=== PATIENT | female | born 1990 | race Caucasian/White ===

== ENCOUNTER 2023-10-19 19:05 | Outpatient (RCR) | payer BC, SELFPAY | END 2023-10-19 23:59 | disposition home or self-care (01) | LOC: RPT 19:05 | PROVIDERS: ATTENDING PHYSICIAN Nurse Practitioner Adult Health | DX: G89.29 Other chronic pain (principal); M54.50 Low back pain, unspecified; Z73.6 Limitation of activities due to disability | CPT/HCPCS: 97110; 97112; 97140; 97164; 97530 ==

== ENCOUNTER → 2023-11-30 15:10 | Outpatient (REF) | payer BC, SELFPAY | LOC: RAD 15:10 | PROVIDERS: ATTENDING PHYSICIAN Family Medicine | DX: M53.3 Sacrococcygeal disorders, not elsewhere classified (principal) | CPT/HCPCS: 72220 ==

== ENCOUNTER 2023-11-30 19:17 | Outpatient (RCR) | payer BC, SELFPAY | END 2023-11-30 23:59 | disposition home or self-care (01) | LOC: RPT 19:17 | PROVIDERS: ATTENDING PHYSICIAN Nurse Practitioner Adult Health | DX: G89.29 Other chronic pain (principal); M54.50 Low back pain, unspecified; Z73.6 Limitation of activities due to disability | CPT/HCPCS: 97110; 97112; 97140 ==

== ENCOUNTER 2023-12-28 17:28 | Outpatient (RCR) | payer BC, SELFPAY | END 2023-12-28 23:59 | disposition home or self-care (01) | LOC: RPT 17:28 | PROVIDERS: ATTENDING PHYSICIAN Nurse Practitioner Adult Health | DX: G89.29 Other chronic pain (principal); M54.50 Low back pain, unspecified; Z73.6 Limitation of activities due to disability | CPT/HCPCS: 97110; 97112; 97140 ==

== ENCOUNTER 2024-01-18 17:37 | Outpatient (RCR) | payer BC, SELFPAY | END 2024-01-18 23:59 | disposition home or self-care (01) | LOC: RPT 17:37 | PROVIDERS: ATTENDING PHYSICIAN Nurse Practitioner Adult Health | DX: G89.29 Other chronic pain (principal); M54.50 Low back pain, unspecified; Z73.6 Limitation of activities due to disability | CPT/HCPCS: 97112; 97140; 97530 ==

== ENCOUNTER 2024-02-08 18:11 | Outpatient (RCR) | payer BC, SELFPAY | END 2024-02-08 23:59 | disposition home or self-care (01) | LOC: RPT 18:11 | PROVIDERS: ATTENDING PHYSICIAN Nurse Practitioner Adult Health | DX: G89.29 Other chronic pain (principal); M62.9 Disorder of muscle, unspecified; M54.50 Low back pain, unspecified; Z73.6 Limitation of activities due to disability; N39.3 Stress incontinence (female) (male) | CPT/HCPCS: 97112; 97140; 97530 ==

== ENCOUNTER → 2025-02-21 16:00 | Outpatient (REF) | payer BC, SELFPAY | LOC: RAD 16:00 | PROVIDERS: ATTENDING PHYSICIAN Nurse Practitioner Family | DX: M53.3 Sacrococcygeal disorders, not elsewhere classified (principal) | CPT/HCPCS: 72220 ==

== ENCOUNTER → 2025-04-08 08:19 | Outpatient (REF) | payer BC, SELFPAY | LOC: WDC 08:19 | PROVIDERS: ATTENDING PHYSICIAN Family Medicine | DX: E04.1 Nontoxic single thyroid nodule (principal); Z12.31 Encounter for screening mammogram for malignant neoplasm of breast; Z86.39 Personal history of other endocrine, nutritional and metabolic disease | CPT/HCPCS: 76536; 77063; 77067 ==

== ENCOUNTER → 2025-04-19 08:57 | Outpatient (REF) | payer BC, SELFPAY | LOC: WDC 08:57 | PROVIDERS: ATTENDING PHYSICIAN Family Medicine | DX: R92.8 Other abnormal and inconclusive findings on diagnostic imaging of breast (principal) | CPT/HCPCS: 76642 ==

== ENCOUNTER → 2025-05-17 15:31 | Outpatient (REF) | payer BC, SELFPAY | LOC: RAD 15:31 | PROVIDERS: ATTENDING PHYSICIAN Physician Assistant; FAMILY PHYSICIAN Family Medicine | DX: M79.641 Pain in right hand (principal) | CPT/HCPCS: 73130 ==